=== PATIENT | male | born 1950 | race Caucasian/White ===

== ENCOUNTER 2018-07-26 17:22 | Emergency (ER) | payer OTHER ==
[~2018-07-26] VITALS: Ht 185.4 cm; Wt 77.1 kg
[2018-07-26] MEDS ORDERED: SULFATRIM 800-120 ML (18:02)
[2018-07-26] MEDS ORDERED: TAMS0.4C (18:03)
== END 2018-07-26 22:57 | disposition home or self-care (01) ==
LOC: ER 17:22
DX: R33.8 Other retention of urine (principal)